=== PATIENT | female | born 1975 | race Caucasian/White ===

== ENCOUNTER 2019-09-04 21:32 | Emergency (ER) | payer MEDICAID, OTHER ==
[2019-09-04] MEDS ORDERED: Lidocaine 1% 10 ML MDV INJECT ONE (23:28)
[2019-09-04] MEDS ORDERED: Diphtheria,Pertussis(Acell),Tetanus Vaccine 0.5 ML Syringe IM ONE (23:28)
--- NOTE | 2019-09-04 23:29 | EDM.PDOC ---
ED HPI GENERAL MEDICAL PROBLEM - General Chief Complaint: Laceration Stated Complaint: LACERATION LEFT THUMB AREA Time Seen by Provider: 09/04/19 23:28 Source of Information: Reports: Patient, RN Notes Reviewed History Limitations: Reports: No Limitations - History of Present Illness INITIAL COMMENTS - FREE TEXT/NARRATIVE: Patient is a 44-year-old female who presents to the ED for the evaluation of a left thumb laceration. Patient states that she was cutting potatoes at supper, when she ended up slicing her left thumb, this is on the ulnar side of the left thumb. This is just below the DIP joint. Patient denies any numbness or tingling distal to the injury, she still has pretty good flexion and extension of the thumb. She states it did bleed quite a bit, but the bleeding has subsequently stopped since coming to the ER. She did not take any sort of pain medication for this at home. Patient believes she is not up-to-date on her tetanus vaccination. Patient states she is right-hand dominant. The wound itself is roughly 2 cm, linear in fashion, and does seem to be fairly deep. Left Finger-Thumb Pain Score (Numeric/FACES): 10 - Related Data Allergies Allergy/AdvReac Type Severity Reaction Status Date / Time bupropion [From Wellbutrin] Allergy Severe Hyperactivi Verified 09/04/19 22:54 ty haloperidol [From Haldol] Allergy Severe Hyperactivi Verified 09/04/19 22:54 ty morphine Allergy Severe Itching Verified 09/04/19 22:54 Home Meds: Home Meds FLUoxetine [PROzac] 40 mg PO DAILY 09/04/19 [History] Metoprolol Tartrate [Lopressor] 50 mg PO Q12HR 09/04/19 [History] SUMAtriptan succinate [Imitrex] 100 mg PO ASDIRECTED PRN 09/04/19 [History] cloNIDine [Catapres] 0.1 mg PO Q12HR 09/04/19 [History] Past Medical History HEENT History: Reports: Impaired Vision Cardiovascular History: Reports: Hypertension [employer] History: Reports: Polycystic Ovaries, Musculoskeletal History: Reports: Other (See Below) Other Musculoskeletal History: herniated disk Neurological History: Reports: Migraines Dermatologic History: Reports: Other (See Below) (skin graft on left hand from previous injury.) - Past Surgical History HEENT Surgical History: Reports: Oral Surgery Female Surgical History: Reports: Hysterectomy, Other (See Below) Other Female Surgeries/Procedures: Still has right ovary. Bladder Sling, Rectocele, Surgeries to correct mesh from bladder sling. Musculoskeletal Surgical History: Reports: Other (See Below) Other Musculoskeletal Surgeries/Procedures:: Surgeries to left hand after s urgeries. Dermatological Surgical History: Reports: Skin Graft Social & Family History - Tobacco Use Smoking Status *Q: Current Every Day Smoker Years of Tobacco use: 30 Packs/Tins Daily: 0.5 - Caffeine Use Caffeine Use: Reports: Coffee, Energy Drinks, Soda, Tea - Recreational Drug Use Recreational Drug Use: No ED ROS GENERAL - Review of Systems Review Of Systems: Comprehensive ROS is negative, except as noted in HPI. ED EXAM, SKIN/RASH Exam: See Below Exam Limited By: No Limitations General Appearance: Alert, WD/WN, No Apparent Distress Respiratory/Chest: No Respiratory Distress, Lungs Clear, Normal Breath Sounds, No Accessory Muscle Use, Chest Non-Tender Cardiovascular: Normal Peripheral Pulses, Regular Rate, Rhythm, No Murmur Peripheral Pulses: 3+: Radial (L), Radial (R) Extremities: Normal Inspection, Normal Capillary Refill Neurological: Alert, Oriented, Normal Cognition, No Motor/Sensory Deficits Psychiatric: Normal Affect, Normal Mood Skin: Warm, Dry, Normal Color, No Rash, Wound/Incision (2 cm linear laceration to the ulnar aspect of the left thumb, this is just under the DIP joint, appears to be somewhat deep, but does not have any obvious tendinous injury.) ED SKIN PROCEDURES - Laceration/Wound Repair Left Middle Medial Digit - 1st (Thumb) Appearance: Subcutaneous, Linear, Clean Distal NVT: Neuro & Vascular Intact, No Tendon Injury Anesthetic Type: Local Local Anesthesia - Lidocaine (Xylocaine): 1% Plain Local Anesthetic Volume: 4cc Skin Prep: Chlorhexidine (Hibiciens), Saline Exploration/Debridement/Repair: Wound Explored, In a Bloodless Field, Explored to Base, No Foreign Material Found Closed with: Sutures Lac/Wound length In cm: 2 Suture Size: 4-0 # of Sutures: 6 Suture Type: Prolene, Interrupted, Simple Sterile Dressing Applied: Nurse Tetanus Status Addressed: Yes (updated at today's visit) Complications: No Course - Vital Signs Last Recorded V/S: Last Vital Signs Temp 97.7 F 09/04/19 22:51 Pulse 80 09/04/19 22:51 Resp 16 09/04/19 22:51 BP 139/101 H 09/04/19 22:51 Pulse Ox 95 09/04/19 22:51 - Orders/Labs/Meds Orders: Active Orders 24 hr Category Date Time Status Vaccines to be Administered [RC] PER UNIT ROUTINE Care 09/04/19 23:28 Ordered Meds: Medications Discontinued Medications Generic Name Dose Route Start Last Admin Trade Name [place] PRN Reason Stop Dose Admin Diphtheria/Tetanus/Acell Pertussis 0.5 ml 09/04/19 23:28 Adacel IM 09/04/19 23:29 .ONCE ONE Ketorolac Tromethamine 60 mg 09/04/19 23:32 Toradol IM 09/04/19 23:33 ONETIME ONE Lidocaine HCl 10 ml 09/04/19 23:28 Xylocaine 1% INJECT 09/04/19 23:29 ONETIME ONE Departure - Departure Time of Disposition: 23:38 Disposition: Home, Self-Care 01 Condition: Good Clinical Impression: Laceration of left thumb Qualifiers: Encounter type: initial encounter Damage to nail status: without damage Foreign body presence: without foreign body Qualified Code(s): S61.012A - Laceration without foreign body of left thumb without damage to nail, initial encounter - Discharge Information *PRESCRIPTION DRUG MONITORING PROGRAM REVIEWED*: No *COPY OF PRESCRIPTION DRUG MONITORING REPORT IN PATIENT OUSMANE: No Instructions: Laceration Care, Adult, [id number] Referrals: Brigette Boyd NP [Primary Care Provider] - Forms: ED Department Discharge Additional Instructions: You have been evaluated in the ED for your laceration. Sutures will need to stay in for 10-14 days (09/13-09/17) You may return to the ED or any clinic for removal. Please keep this area clean and dry, you may cleanse with regular soap and water. No vigorous scrubbing. Watch out for signs of infection like increased redness, swelling, pain at the laceration site, or if you should develop any fevers or chills. Please return to ED if your symptoms change or worsen. Sepsis Event Note (ED) - Evaluation Sepsis Screening Result: No Definite Risk - Focused Exam Vital Signs: Vital Signs Temp Pulse Resp BP Pulse Ox 09/04/19 22:51 97.7 F 80 16 139/101 H 95 - My Orders Last 24 Hours: My Active Orders 09/04/19 23:28 Vaccines to be Administered [RC] PER UNIT ROUTINE - Assessment/Plan Last 24 Hours: My Active Orders 09/04/19 23:28 Vaccines to be Administered [RC] PER UNIT ROUTINE
[2019-09-04] MEDS ORDERED: Ketorolac 60 MG/2 ML SDV IM ONE (23:32)
== END 2019-09-05 00:20 | disposition home or self-care (01) ==
LOC: JD.ED 21:32
DX: S61.012A Laceration without foreign body of left thumb without damage to nail, initial encounter (principal); I10 Essential (primary) hypertension; F17.210 Nicotine dependence, cigarettes, uncomplicated; Z88.5 Allergy status to narcotic agent; Z88.6 Allergy status to analgesic agent; Z88.8 Allergy status to other drugs, medicaments and biological substances; Z79.899 Other long term (current) drug therapy; Z23 Encounter for immunization; W26.8XXA Contact with other sharp object(s), not elsewhere classified, initial encounter
CPT/HCPCS: 12001; 90471; 90715; 96372; 99282; J1885; J2001; 99283